=== PATIENT | male | born 1990 | race Caucasian/White ===

== ENCOUNTER → 2016-09-30 | Outpatient (CLI) | payer OTHER ==
--- NOTE | 2016-09-30 11:02 | XR ---
EXAMINATION TYPE: XR Hip Complete LT DATE OF EXAM: 09/30/2016 10:51 AM CLINICAL HISTORY: pain TECHNIQUE: AP and frogleg views of the left hip are obtained. COMPARISON: January 23, 2016 FINDINGS: There is no acute fracture/dislocation evident. The joint space appears within normal li mits. The overlying soft tissue appears unremarkable. Small stable bone island left intertrochanteri c region. IMPRESSION: 1. There is no acute fracture or dislocation.ICD 10 NO FRACTURE, INITIAL EVALUATION
== END | disposition home or self-care (01) ==
LOC: RADXRMAIN 10:37
PROVIDERS: ATTEND Emergency Medicine
DX: S73.102A Unspecified sprain of left hip, initial encounter (principal)
CPT/HCPCS: 73502

== ENCOUNTER → 2016-10-14 | Outpatient (CLI) | payer OTHER ==
--- NOTE | 2016-10-14 10:45 | MR ---
EXAMINATION TYPE: MR hip LT wo con DATE OF EXAM: 10/14/2016 10:21 AM COMPARISON: NONE HISTORY: sprain lt hip Standard multiplanar, multisequence MRI departmental protocol Multiplanar, multisequence images of the left hip were acquired. FINDINGS: The osseous structures are symmetric and free of fracture or bony lesion. No evidence for j oint effusion. No evidence for avascular necrosis. The labrum is intact. No definite muscular abnorma lity seen to suggest a tear or intramuscular hematoma. No evidence for pelvic mass. IMPRESSION: Unremarkable evaluation of the left hip.
== END | disposition home or self-care (01) ==
LOC: RADMRIMAIN 09:25
PROVIDERS: ATTEND Emergency Medicine
DX: S73.102D Unspecified sprain of left hip, subsequent encounter (principal)

== ENCOUNTER 2018-12-22 20:01 | Emergency (ER) | payer OTHER ==
[2018-12-22] MEDS ORDERED: KETOROLAC 30 MG/ML 1 ML VIAL IVP STA (20:37)
[2018-12-22 20:48] LABS: Basophils % (A) 0 %; Eosinophils # (A) 0.1 k/uL (0-0.7); Eosinophils % (A) 1 %; HCT 47.3 % (39.0-53.0); HGB 15.9 gm/dL (13.0-17.5); Lymphocytes # (A) 2.7 k/uL (1.0-4.8); Lymphocytes % (A) 25 %; MCHC 33.6 g/dL (31.0-37.0); MCV 89.2 fL (80.0-100.0); Mean Platelet Volume 8.5; Monocytes # (A) 0.9 k/uL (0-1.0); Monocytes % (A) 8 %; Neutrophils # (A) 6.8 k/uL (1.3-7.7); Neutrophils % (A) 63 %; Platelet Count 200 k/uL (150-450); RBC 5.29 m/uL (4.30-5.90); RDW 12.6 % (11.5-15.5); WBC 10.9 k/uL (3.8-10.6)
[2018-12-22 20:50] LABS: Appearance,Urine Cloudy (Clear); Bilirubin,Urine Negative (Negative); Blood,Urine Large (Negative); Budding Yeast,Urine Many /hpf; Color,Urine Light Red; Glucose,Urine (UA) Negative (Negative); Ketones,Urine Trace (Negative); Leukocyte Esterase,Urine Negative (Negative); Mucus,Urine Few /hpf; Nitrite,Urine Negative (Negative); PH, Urine 5.5 (5.0-8.0); Protein,Urine 1+ (Negative); RBC,Urine >182 /hpf (0-5); Specific Gravity,Urine 1.028 (1.001-1.035)
[2018-12-22 20:56] LABS: ALT 20 U/L (21-72); AST 18 U/L (17-59); African American GFR (CKD) >90 (>60 ml/min/1.73 sqM); Albumin 4.5 g/dL (3.5-5.0); Alkaline Phosphatase 68 U/L (38-126); Anion Gap 9 mmol/L; Blood Urea Nitrogen 10 mg/dL (9-20); Calcium 9.6 mg/dL (8.4-10.2); Carbon Dioxide 29 mmol/L (22-30); Chloride 105 mmol/L (98-107); Glucose 83 mg/dL (74-99); Potassium 4.2 mmol/L (3.5-5.1); Sodium 143 mmol/L (137-145); Total Bilirubin 0.4 mg/dL (0.2-1.3); Total Protein 7.3 g/dL (6.3-8.2)
--- NOTE | 2018-12-22 21:19 | CT ---
EXAMINATION TYPE: CT abdomen pelvis wo con DATE OF EXAM: 12/22/2018 COMPARISON: None HISTORY: Right sided inguinal pain. CT DLP: 441.1 mGycm Automated exposure control for dose reduction was used. TECHNIQUE: Helical acquisition of images was performed from the lung bases through the pelvis. FINDINGS: Lung bases are clear. There is no pleural effusion. There is no pericardial effusion. Liver spleen pancreas stomach gallbladder appear normal. Bile ducts are not dilated. There is no adre nal mass. The kidneys have normal size. There are multiple small bilateral renal calculi up to 3 mm. There is m ild ectasia of the right ureter. There is a 3 mm calculus at the right ureteral vesicle junction. Josiah dder distends smoothly. There is no inguinal hernia. There is no free fluid in the pelvis. There are a few sigmoid diverticula. There is no evidence of di verticulitis. Appendix is not definitely seen. There is no sign of thickened appendix. There is no mesenteric edema. There is no ascites or free air. Lumbar spine is intact. Bony pelvis is intact. IMPRESSION: SMALL OBSTRUCTING CALCULUS AT THE RIGHT URETERAL VESICLE JUNCTION. MULTIPLE SMALL BILATERAL RENAL CALCULI. MINIMAL RIGHT-SIDED HYDRONEPHROSIS AND HYDROURETER.
--- NOTE | 2018-12-22 21:33 | ED ---
Abdominal Pain HPI - General Source: patient, family Mode of arrival: ambulatory Limitations: altered mental status <Radha Loving - Last Filed: 12/23/18 02:34> <Magdalene Gallardo - Last Filed: 12/24/18 04:18> - General Chief Complaint: Abdominal Pain Stated Complaint: RLQ Pain/Hematuria Time Seen by Provider: 12/22/18 20:33 - History of Present Illness Initial Comments: 28-year-old male past history of kidney stones presenting today for chief complaint of right flank pain. Patient states the pain radiates towards the right groin. Patient states he has had vomiting. Patient states it feels similar to a kidney stone the past and he has blood in his urine. Patient denies fever chills night sweats. Patient denies diarrhea. Patient has no other complaints remaining review of system negative. Upon arrival patient appears well and does not appear in acute distress. (Radha Loving) - Related Data Home Medications Medication Instructions Recorded Confirmed Aspirin EC [Ecotrin] 325 mg PO DAILY PRN 12/22/18 12/22/18 Previous Rx's Medication Instructions Recorded Ketorolac [Toradol] 10 mg PO Q8HR 5 Days #15 tab 12/22/18 Ondansetron Odt [Zofran Odt] 4 mg PO Q8HR PRN 7 Days #21 tab 12/22/18 Allergies Allergy/AdvReac Type Severity Reaction Status Date / Time No Known Allergies Allergy Verified 12/22/18 20:30 Review of Systems ROS Other: All systems not noted in ROS Statement are negative. <Radha Loving - Last Filed: 12/23/18 02:34> ROS Other: All systems not noted in ROS Statement are negative. <Magdalene Gallardo - Last Filed: 12/24/18 04:18> ROS Statement: Those systems with pertinent positive or pertinent negative responses have been documented in the HPI. Past Medical History Past Medical History: Hypertension, Thyroid Disorder History of Any Multi-Drug Resistant Organisms: None Reported Past Surgical History: No Surgical Hx Reported Past Psychological History: No Psychological Hx Reported Smoking Status: Current every day smoker Past Alcohol Use History: Occasional Past Drug Use History: None Reported <Radha Loving - Last Filed: 12/23/18 02:34> General Exam Limitations: altered mental status <Radha Loving - Last Filed: 12/23/18 02:34> - General Exam Comments Initial Comments: General: The patient is awake and alert, in no distress, and does not appear acutely ill. Eye: Pupils are equal, round and reactive to light, extra-ocular movements are intact. No nystagmus. There is normal conjunctiva bilaterally. No signs of icterus. Ears, nose, mouth and throat: There are moist mucous membranes and no oral lesions. Neck: The neck is supple, there is no tenderness or JVD. Cardiovascular: There is a regular rate and rhythm. No murmur, rub or gallop is appreciated. Respiratory: Lungs are clear to auscultation, respirations are non-labored, breath sounds are equal. No wheezes, stridor, rales, or rhonchi. Gastrointestinal: Soft, non-distended, non-tender abdomen without masses or organomegaly noted. There is no rebound or guarding present. No CVA tenderness. Bowel sounds are unremarkable. Musculoskeletal: Normal ROM, no tenderness. Strength 5/5. Sensation intact. Pulses equal bilaterally 2+. Neurological: A&O x 3. CN II-XII intact, There are no obvious motor or sensory deficits. Coordination appears grossly intact. Speech is normal. Skin: Skin is warm and dry and no rashes or lesions are noted. Psychiatric: Cooperative, appropriate mood & affect, normal judgment. (Radha Loving) Course Vital Signs 12/22/18 12/22/18 20:11 21:49 Temperature 98.2 F 98.3 F Pulse Rate 83 82 Respiratory 16 18 Rate Blood Pressure 132/79 118/85 O2 Sat by Pulse 100 98 Oximetry Medical Decision Making - Lab Data Result diagrams: 12/22/18 20:25 12/22/18 20:25 <Radha Loving - Last Filed: 12/23/18 02:34> - Lab Data Result diagrams: 12/22/18 20:25 12/22/18 20:25 <Magdalene Gallardo - Last Filed: 12/24/18 04:18> - Medical Decision Making CT revealed multiple calculi. Small stone at UVJ this correlates clinically pain. UA revealed RBCs no evidence of infection. Mild leukocytosis. At this time I feel patient is stable for discharge with outpatient urology follow-up. Patient is agreeable care plan, patient's pain control. Patient was prescribed Toradol and Zofran outpatient. Patient discharged appearing well, aware of return parameters. (Radha Loving) I was available for consultation in the emergency department. The history and physical exam were done by the Midlevel Provider. Medical decision making was done by the Midlevel Provider. I have reviewed the chart, however was not consulted specifically or made aware of this patient by the above midlevel provider and did not personally evaluate, interact with, or disposition this patient on the day of their visit Chart was dictated using [employer] dictation software. Attempts were made to correct any dictation errors however some typographical errors may persist. (Magdalene Gallardo) - Lab Data Lab Results 12/22/18 12/22/18 12/22/18 Range/Units 20:25 20:25 20:25 WBC 10.9 H (3.8-10.6) k/uL RBC 5.29 (4.30-5.90) m/uL Hgb 15.9 (13.0-17.5) gm/dL Hct 47.3 (39.0-53.0) % MCV 89.2 (80.0-100.0) fL MCH 30.0 (25.0-35.0) pg MCHC 33.6 (31.0-37.0) g/dL RDW 12.6 (11.5-15.5) % Plt Count 200 (150-450) k/uL Neutrophils % 63 % Lymphocytes % 25 % Monocytes % 8 % Eosinophils % 1 % Basophils % 0 % Neutrophils # 6.8 (1.3-7.7) k/uL Lymphocytes # 2.7 (1.0-4.8) k/uL Monocytes # 0.9 (0-1.0) k/uL Eosinophils # 0.1 (0-0.7) k/uL Basophils # 0.0 (0-0.2) k/uL Sodium 143 (137-145) mmol/L Potassium 4.2 (3.5-5.1) mmol/L Chloride 105 (98-107) mmol/L Carbon Dioxide 29 (22-30) mmol/L Anion Gap 9 mmol/L BUN 10 (9-20) mg/dL Creatinine 0.80 (0.66-1.25) mg/dL Est GFR (CKD-EPI)AfAm >90 (>60 ml/min/1.73 sqM) Est GFR (CKD-EPI)NonAf >90 (>60 ml/min/1.73 sqM) Glucose 83 (74-99) mg/dL Calcium 9.6 (8.4-10.2) mg/dL Total Bilirubin 0.4 (0.2-1.3) mg/dL AST 18 (17-59) U/L ALT 20 L (21-72) U/L Alkaline Phosphatase 68 (38-126) U/L Total Protein 7.3 (6.3-8.2) g/dL Albumin 4.5 (3.5-5.0) g/dL Urine Color Light Red Urine Appearance Cloudy (Clear) Urine pH 5.5 (5.0-8.0) Ur Specific [place] 1.028 (1.001-1.035) Urine Protein 1+ H (Negative) Urine Glucose (UA) Negative (Negative) Urine Ketones Trace H (Negative) Urine Blood Large H (Negative) Urine Nitrite Negative (Negative) Urine Bilirubin Negative (Negative) Urine Urobilinogen 2.0 (<2.0) mg/dL Ur Leukocyte Esterase Negative (Negative) Urine RBC >182 H (0-5) /hpf Urine Mucus Few H (None) /hpf Urine Yeast (Budding) Many H (None) /hpf Disposition Is patient prescribed a controlled substance at d/c from ED?: No Time of Disposition: 21:32 <Radha Loving L - Last Filed: 12/23/18 02:34> <Magdalene Gallardo P - Last Filed: 12/24/18 04:18> Clinical Impression: Multiple kidney stones, Flank pain, Hematuria Disposition: HOME SELF-CARE Condition: Good Instructions (If sedation given, give patient instructions): Kidney Stones (ED) Additional Instructions: Please use medication as discussed. Please follow-up with urology in next week as well as primary provider. Please return to emergency room if the symptoms increase or worsen or for any other concerns. Prescriptions: Ketorolac [Toradol] 10 mg PO Q8HR 5 Days #15 tab Ondansetron Odt [Zofran Odt] 4 mg PO Q8HR PRN 7 Days #21 tab PRN Reason: Nausea Referrals: Antony Suarez DO [Primary Care Provider] - 1-2 days Mina Raines MD [STAFF PHYSICIAN] - 1-2 days
[2018-12-22 21:51] VITALS: BP 118/85; PULSE 82; RESP 18; TEMP 98.3
== END 2018-12-22 21:50 | disposition home or self-care (01) ==
LOC: EC 20:01
DX: N20.0 Calculus of kidney (principal); D72.829 Elevated white blood cell count, unspecified; R41.82 Altered mental status, unspecified; F17.200 Nicotine dependence, unspecified, uncomplicated
CPT/HCPCS: 36415; 80053; 85025; 81001; 74176; 99284; 96374; J1885

== ENCOUNTER 2019-04-04 18:50 | Emergency (ER) | payer BC, OTHER ==
[2019-04-04 19:02] VITALS: BP 126/96; PULSE 100; RESP 18; TEMP 97.9
[2019-04-04] MEDS ORDERED: ACET/COD 300 MG/30 MG STARTER PACK 6 TAB BTL PO STA (19:44)
--- NOTE | 2019-04-04 19:45 | ED ---
ENT HPI - General Chief complaint: Dental/Oral Stated complaint: Dental pain/abscess Time Seen by Provider: 04/04/19 19:15 Source: patient Mode of arrival: ambulatory Limitations: no limitations - History of Present Illness Initial comments: Patient is a 20-year-old male presenting to the emergency department with a chief complaint of toothache. Patient reports today ago he had a dental abscess in the "pop" with some discharge. Patient denies any fevers or chills. Patient reports that he developed mild swelling on the left side of the has slightly resolved since. Patient reports using [id number] analgesia with minimal improvement. Patient does report a history of poor dentition and does not see a dentist. - Related Data Home Medications Medication Instructions Recorded Confirmed Aspirin EC [Ecotrin] 325 mg PO DAILY PRN 12/22/18 12/22/18 Previous Rx's Medication Instructions Recorded Ketorolac [Toradol] 10 mg PO Q8HR 5 Days #15 tab 12/22/18 Ondansetron Odt [Zofran Odt] 4 mg PO Q8HR PRN 7 Days #21 tab 12/22/18 Amoxicillin/Potassium Clav 1 tab PO Q12HR #20 tab 04/04/19 [Augmentin 875-125 Tablet] Allergies Allergy/AdvReac Type Severity Reaction Status Date / Time No Known Allergies Allergy Verified 04/04/19 18:58 Review of Systems ROS Statement: Those systems with pertinent positive or pertinent negative responses have been documented in the HPI. ROS Other: All systems not noted in ROS Statement are negative. Past Medical History Past Medical History: Hypertension, Thyroid Disorder History of Any Multi-Drug Resistant Organisms: None Reported Past Surgical History: No Surgical Hx Reported Past Psychological History: No Psychological Hx Reported Smoking Status: Current every day smoker Past Alcohol Use History: Occasional Past Drug Use History: None Reported General Exam Limitations: no limitations General appearance: alert, in no apparent distress Head exam: Present: atraumatic, normocephalic, normal inspection Eye exam: Present: normal appearance, PERRL, EOMI Pupils: Present: normal accommodation ENT exam: Present: normal exam, normal oropharynx (Poor dentition. No visible periapical abscess. Mild erythema along tooth #14), mucous membranes moist, TM's normal bilaterally, normal external ear exam Neck exam: Present: normal inspection, full ROM. Absent: tenderness, lymphadenopathy Respiratory exam: Present: normal lung sounds bilaterally Cardiovascular Exam: Present: regular rate, normal rhythm, normal heart sounds Extremities exam: Present: normal inspection, full ROM Back exam: Present: normal inspection, full ROM Neurological exam: Present: alert, oriented X3 Psychiatric exam: Present: normal affect, normal mood Skin exam: Present: warm, intact, normal color Course Vital Signs 04/04/19 18:59 Temperature 97.9 F Pulse Rate 100 Respiratory 18 Rate Blood Pressure 126/96 O2 Sat by Pulse 99 Oximetry Medical Decision Making - Medical Decision Making Patient is a 28-year-old male presenting to the emergency department with a chief complaint of dental pain. Patient had a periapical abscess that developed over the past few days but it was drained today after he was eating food. Patient also reports there is mild swelling on the left side of his face. Patient denies any fevers or chills. Patient reports the pain does not radiate along the neck. On physical examination there is no visible abscess. Patient given Tylenol 3 starter pack for pain control. Patient advised about the possible side effects of the medication. Patient will be discharged with Augmentin due to erythema surrounding the tooth #14. Patient advised to follow with a dentist for further treatment. Patient advised to return to emergency department if symptoms worsen. Case discussed physician. Disposition Clinical Impression: Dental infection Disposition: HOME SELF-CARE Condition: Stable Instructions (If sedation given, give patient instructions): Toothache (ED) Additional Instructions: Please take prescribed medication as directed. Please follow-up with a dentist. Please return to emergency department if symptoms worsen. Prescriptions: Amoxicillin/Potassium Clav [Augmentin 875-125 Tablet] 1 tab PO Q12HR #20 tab Is patient prescribed a controlled substance at d/c from ED?: No Referrals: Antony Suarez DO [Primary Care Provider] - 1-2 days Time of Disposition: 19:45
== END 2019-04-04 19:51 | disposition home or self-care (01) ==
LOC: EC 18:50
DX: K04.7 Periapical abscess without sinus (principal); I10 Essential (primary) hypertension; F17.200 Nicotine dependence, unspecified, uncomplicated
CPT/HCPCS: 99282